=== PATIENT | female | born 1970 | race Caucasian/White ===

== ENCOUNTER 2016-09-27 11:37 | Outpatient (CLI) | payer OTHER ==
[2015-08-07 17:08] VITALS: BP 150/83
--- NOTE | 2016-09-27 17:56 | Diagnostic Imaging Report ---
SAM HANEY [facility] [address] [facility] [address] [id number] Report Submission Date: Sep 27, 2016 5:15:22 PM [employer] Patient Study Name: KIANA ELIAS Date: Sep 27, 2016 11:51:19 AM [employer] Modality Type: CR Gender: F Description: LOWER EXTREMITY : 74 Institution: [facility] Physician: SAM HANEY Left foot 3 views History: Foot pain Findings: A nondisplaced oblique 4th proximal phalangeal shaft fracture is observed. The remainder of the foot is intact without additional fracture, dislocation, arthropathy, or focal bone lesion. Impression: Nondisplaced 4th proximal phalangeal shaft fracture. Electronically signed on Sep 27, 2016 5:15:22 PM [employer] by: Pj FOSTER
== END 2016-09-27 11:40 ==
LOC: RAD 11:37
PROVIDERS: ATTEND Family Medicine
DX: M84.375A Stress fracture, left foot, initial encounter for fracture (principal)
CPT/HCPCS: 73630